=== PATIENT | female | born 1950 | race Caucasian/White ===

== ENCOUNTER 2019-04-15 23:18 | Inpatient (IN) | payer BC, OTHER ==
[~2019-04-15] VITALS: Ht 160 cm; Wt 94.3 kg
--- NOTE | ~2019-04-15 | O ---
[facility] [place] [address] OPERATIVE REPORT Name: NABIL CARNEY Room #: 433-I ADM IN M.R.#: [id number] Admission: 04/16/19 Attend Phys: Fab Pederson Discharge: Date of : 48 Report #: [id number] THIS REPORT FOR: cc: DEBORAH CORCORAN MD Physician not on staff Sim Joya MD ~ CC: DEBORAH Pederson Physician staff DATE OF SERVICE: 04/18/2019 PREOPERATIVE DIAGNOSIS: Gallstone pancreatitis. POSTOPERATIVE DIAGNOSES: Gallstone pancreatitis. Negative cholangiogram. OPERATIVE PROCEDURE DONE: Laparoscopic cholecystectomy and intraoperative cholangiogram. OPERATING SURGEON: Sim Joya MD INDICATIONS FOR THE PROCEDURE: The patient is a 68-year-old female who presented with features of gallstone pancreatitis with abnormal liver function tests. The patient was advised laparoscopic cholecystectomy and cholangiogram. The patient showed understanding and agreed to proceed. DESCRIPTION OF PROCEDURE: After explaining to the patient in detail, an informed consent was obtained, the patient was identified in the preoperative holding area. The patient was transferred to the operating room and was placed in supine position. Sequential compressive devices were placed for DVT prophylaxis. Preoperative antibiotics were given. After induction of anesthesia, the abdomen was prepped and draped in a sterile fashion. Through a right upper quadrant 1 cm incision and using Optiview technique, peritoneal cavity was entered and pneumoperitoneum was created. Thereafter, under direct vision, another 5 mm trocar was placed through a supraumbilical incision, another 5 mm trocar was placed in the epigastrium. Another 5 mm trocar was placed in the right subcostal region. On initial inspection, the gallbladder was found to be edematous. Gallbladder was retracted and the peritoneal reflections along the neck of the gallbladder was gently dissected off. Cystic duct was identified and isolated from the surrounding structures. Cystic duct was then double clipped distally and a ductotomy was made and a cholangiogram catheter was inserted. A cholangiogram was then performed. The cholangiogram showed no filling defects and there was free flow of contrast into the duodenum. The cholangiogram catheter was then removed. The cystic duct was then doubly clipped proximally and was then divided. Cystic artery also was then divided in a similar fashion. Gallbladder was gently dissected off the liver bed using [address] [address] OPERATIVE REPORT Name: ROMMELNABIL Raúl Room #: 433-I [facility] IN [facility]#: [id number] Admission: 04/16/19 Attend Phys: Fab Pederson Discharge: Date of : 48 Report #: [id number] hook electrocautery. Absolute hemostasis was achieved. Thorough saline irrigation was given. The gallbladder was retrieved using an EndoCatch through the lateral most incision. Incisions were then closed with 4-0 Monocryl. Dermabond was applied. The patient was stable at the end of the procedure. The patient was awoken from anesthesia and was transferred to the recovery room in stable condition. ESTIMATED BLOOD LOSS: Minimal. CONDITION OF THE PATIENT: Stable. FLUIDS GIVEN: Per anesthesia notes. SPECIMEN SENT: Gallbladder. COMPLICATIONS: None. ANESTHESIA: General anesthesia. By: [id number] Sim Joya MD /nt
[2019-04-15 23:42] VITALS: BP 92/56
[2019-04-15 23:56] LABS: ANION GAP 10 mmol/L (7-16); BUN 17 mg/dL (7-18); CALCIUM 9.1 mg/dL (8.5-10.1); CHLORIDE 102 mmol/L (98-107); CO2 26 mmol/L (21-32); CREATININE 0.8 mg/dL (0.6-1.0); GLUCOSE 131 mg/dL (74-106); POTASSIUM 3.9 mmol/L (3.5-5.1); SODIUM 138 mmol/L (136-145)
[2019-04-15 23:58] LABS: BASOPHILS 0.7 % (0.0-2.0); EOSINOPHILS 1.8 % (0.0-3.0); HEMOGLOBIN 13.3 gm/dL (12.0-15.0); LYMPHOCYTES 22.3 % (24.0-44.0); MCH 30.3 pg (26.0-34.0); MCHC 33.2 g/dL (28.0-37.0); MCV 91.3 fL (80.0-100.0); MONOCYTES 4.6 % (1.0-8.0); PLATELET COUNT 214 thou/uL (150-400); POLYS 70.6 % (36.0-66.0); RBC 4.38 mil/uL (4.20-5.00); RDW 13.9 % (10.5-14.5); WBC 8.5 thou/uL (4.0-11.0)
[2019-04-16 00:06] LABS: DIRECT BILIRUBIN 1.2 mg/dL (<0.1-0.2); SGOT 124 U/L (15-37); SGPT 100 U/L (30-65); TOTAL BILIRUBIN 2.2 mg/dL (<0.1-1.0); TOTAL PROTEIN 7.4 g/dL (6.4-8.2); TROPONIN-I <0.06 ng/mL (<0.06)
[2019-04-16 00:41] LABS: LIPASE 24012 U/L (73-393)
[2019-04-16] MEDS ORDERED: CELEXA 20 MG TA20 MG PO (00:41)
[2019-04-16 02:33] VITALS: BP 158/71
[2019-04-16 02:36] VITALS: BP 158/71
[2019-04-16 04:38] VITALS: BP 143/65
--- NOTE | 2019-04-16 05:00 | NUR ---
EKG DONE IN ER HAND DELIVERED BY MYSELF TO [facility] AND GIVEN TO HER NURSE.
--- NOTE | 2019-04-16 05:45 | NUR ---
PT ARRIVED ON THE UNIT FROM ER @0416 THIS AM. A&OX4 WITH MILD ABD PAIN IN THE ABD OF A 2. CURRENTLY DENIES N/V. PT ORIENTED TO THE UNIT. AD NISHA TO THE BATHROOM WITH STAEDY GAIT. CALL LIGHT IN REACH AND ASSESSEMENT DONE. PT NPO. IV INTACT AND FLIUDS INFUISING. WILL CONT TO MONITOR TILL EOS.
[2019-04-16 10:41] LABS: CHOLESTEROL 193 mg/dL (<200); HDL CHOLESTEROL 53 mg/dL (>40); LDL CHOLESTEROL 112 mg/dL (<100); TC:HDL 3.6 Ratio (Not establshd); TRIGLYCERIDE 140 mg/dL (<150); VLDL 28 mg/dL (<40)
--- NOTE | 2019-04-16 13:28 | NUR ---
PT ADMITTED RELATED TO ABD PAIN. CM REVIEWED CHART AND SPOKE WITH CARE TEAM. CM MET WITH PT AND SPOUSE AT BEDSIDE THIS DAY. PT IS A&0 X. CM ROLE INTRIDUCED. PT INDICATED SHE LIVES IN HOUSE WITH SPOUSE WITH 3 STEPS TO ETNER AND NO STEPS INSIDE. 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 PT INDICATED SHE HAD HH AND OP PT 6 MONTHS AGO WHEN SHE HAD KNEE DONE. OPT INDICATED SHE PLANS TO RETURN HOME ONCE MEDCIALLY STABLE. CARE TEAM INDICATED THAT PT IS TO HAVE MRCP AND DEPENDING ON RESULTS MAY NEED LAP DEBBIE. CM TO FOLLOW INDICATED WITH DC PLANNING.
[2019-04-16 16:18] VITALS: BP 118/50
--- NOTE | 2019-04-16 18:20 | NUR ---
PT ALERT AND ORIENTED TIMES FOUR. VSS, IVF INFUSING PER ORDER. PT DENEIS ANY N/V THIS SHIFT. PT TOLERATED CLEAR LIQUID DIET THIS EVENING. PT FAMILY AT BEDSIDE. WILL CONTIUE TO MONITOR.
[2019-04-16 19:10] VITALS: BP 102/44
[2019-04-17 03:15] VITALS: BP 96/47
--- NOTE | 2019-04-17 03:35 | NUR ---
ASSUMED PT CARE AT 1900. NO N/V EXPERIENCED TONIGHT. REPORTS NO PAIN. TOLERATING CLEAR LIQUIDS. UP AD NISHA IN ROOM, TOOK A SHOWER THIS EVENING. AND PT HAVE LOTS OF QUESTIONS ABOUT NEW DIAGNOSIS, TOLD THEM TO BRING UP CONCERNS WITH PHYSICIAN. AWAITING SURGERY ON TUESDAY. SLEEPING COMFORTABLY CURRENTLY, WILL CONTINUE TO MONITOR.
[2019-04-17 05:35] VITALS: BP 120/68
[2019-04-17 06:50] LABS: ALBUMIN 3.5 g/dL (3.4-5.0); CALCIUM 8.4 mg/dL (8.5-10.1); CREATININE 0.7 mg/dL (0.6-1.0); MAGNESIUM 2.1 mg/dL (1.8-2.4); POTASSIUM 4.2 mmol/L (3.5-5.1); TOTAL BILIRUBIN 1.2 mg/dL (<0.1-1.0); TOTAL PROTEIN 6.6 g/dL (6.4-8.2)
[2019-04-17 09:29] VITALS: BP 130/56
--- NOTE | 2019-04-17 13:31 | NUR ---
PT CARE ASSUMED AT 0700.A&Ox4. PT AWAITING SURGERY TOMORROW. PT HAS LOTS OF QUESTIONS AND GOT UPSET WHEN I TOLD HIM THAT HE HAD TO GO THROUGH [facility] TO GET HIS WIFES RECORDS. AWAITING OBGYN TO CONSULT PT. PT IS UP INDEPENDENTLY IN THE ROOM. IV IS PATENT WITH NO REDNESS OR EDEMA. FLUIDS INFUSING. PT IS ON CLEAR LIQUIDS WHICH SHE IS TOLERATING WELL. CALL LIGHT IN REACH. WILL CONTINUE TO MONITOR.
--- NOTE | 2019-04-17 15:21 | NUR ---
PT WAS ADMITTED FOR ABDOMINAL PAIN THAT WAS RELATED TO GALLBLADDER.PT IS WAITING NOW FOR SURGERY TO HAVE GALLBLADDER REMOVED ON 04/18/19.SHE IS IN NO PAIN AND IS NOW ON A CLEAR LIQUID DIET. PT HAD AN ORDER FOR ENOXPARIAN BUT REFUSED DUE TO RELGIIOUS BELIEFS SURROUNDING NATURAL HEALING.I EXPLAINED THE REASON FOR ENOXPARIAN BUT PT STILL REFUSED.ALTHOUGH THE PATIENT WAS ADMITTED FOR ABDOMINAL PAIN SHE IS ALSO CONCERNED ABOUT AN ENLARGED UTERUS, BUT OTHER THEN THAT SHE IS DOING WELL.
[2019-04-17 15:30] VITALS: BP 140/59
--- NOTE | 2019-04-17 15:33 | NUR ---
CARE TEAM INDICATED THAT PT IS TO HAVE LAP DEBBIE TOMORROW 04/18/19. CM NET WITH PT AND SPOUSE AT BEDSIDE THEY HAD EXPRESSED SOME CONCERN ABOUT WHETHER STEVEN GOYAL, AND NUPUR WERE IN NETWORK WITH HER INSURANCE. CM INDICATED THAT BY ALL WE CAN SEE THEY SHOULD BE COVERED. CM TO FOLLOW INDICATED WITH DC PLANNING. DC ANTICIPATED TUESDAY.
--- NOTE | 2019-04-17 15:53 | NUR ---
I have reviewed and concur with student documentation.
[2019-04-17 16:01] VITALS: BP 134/64
[2019-04-17 20:45] VITALS: BP 148/68
[2019-04-18 03:20] VITALS: BP 156/69
[2019-04-18 03:21] VITALS: BP 125/80
[2019-04-18 06:12] LABS: ALBUMIN 3.2 g/dL (3.4-5.0); CALCIUM 8.3 mg/dL (8.5-10.1); CREATININE 0.7 mg/dL (0.6-1.0); TOTAL BILIRUBIN 0.7 mg/dL (<0.1-1.0); TOTAL PROTEIN 6.2 g/dL (6.4-8.2)
--- NOTE | 2019-04-18 07:48 | NUR ---
ASSUMED PT CARE AT 1900. PT REPORTS NO PAIN. ANXIOUS ABOUT SURGERY TODAY. HELD DOCUSATE DUE TO LOOSE STOOLS. NPO SINCE MIDNIGHT. PT TAKEN TO SURGERY AROUND 0700. REPORT PASSED TO FER [facility]TS.
--- NOTE | 2019-04-18 11:36 | NUR ---
PT RETURNED FROM PACU. LAP SITES X4 WITH DERMA ALVARADO ARE C/D/I. PT IS JOHANNA VAIL. SPOUSE AT THE BEDSIDE. PT TOLERATING CLEARS WELL. DENIES PAIN AT THIS TIME. WILL CONT POC.
[2019-04-18 19:15] VITALS: BP 132/73
[2019-04-19 03:10] VITALS: BP 154/66
--- NOTE | 2019-04-19 03:54 | NUR ---
RECEIVED CARE OF PATIENT AT 1900. PATIENT ALERT AND ORIENTED X4. C/O MILD DULL PAIN IN ABD. 4 SMALL INCISIONS ON ABD WTIH DERMABOND. NO S/S OF INFECTION NOTED. ENCOURAGED PATIENT TO COUGH AND DEEP BREATH. GAVE PATIENT A BLANKET AND EXPLAINED TO PATIENT TO HOLD ON ABD WHEN COUGHING. AT BEDSIDE. O2 AT 2L. UP WITH ASSIST OF ONE. IV IN R HAND. SALINE LOCK IN L WRIST REMOVED. SCD'S ON.SLEPT VERY LITTLE THIS SHIFT.
[2019-04-19 07:45] VITALS: BP 148/64
[2019-04-19] MEDS ORDERED: ACETAMINOPHEN325 M1 PO (08:11)
[2019-04-19 09:21] VITALS: BP 148/64
--- NOTE | 2019-04-19 09:59 | NUR ---
PT CARE ASSUMED AT 0700. A&Ox4. PT DISCHARGED AT 0930 WITH . DISCHARGE INFORMATION AND EDUCATION GIVE. LAPSITE NON TENDER. PT PASSING GAS. NO POST OPERATIVE BM YET. CALL KAMILLE FIERRO.
--- NOTE | 2019-04-19 16:07 | PATH ---
[facility] [address] [place] [address] PATHOLOGY RPT PROCEDURE Name: NABIL CARNEY Room #: 433-I [facility] IN M.R.#: [id number] Admission: 04/16/19 Date of : 48 Discharge: 04/19/19 Report #: [id number] Path Case #: [id number] [facility] Accession Number: [id number] . 01 Material submitted: . gallbladder - GALLBLADDER . 01 Clinical history: . Gallstone pancreatitis . 02 Diagnosis: Gallbladder, cholecystectomy: - Mild chronic cholecystitis. - Cholelithiasis. - Cholesterolosis. . (IUV:mml; 04/19/2019) QL 04/19/2019 1256 Local . 02 Electronically signed: . Shweta Pizarro MD, Pathologist NPI- [id number] . 01 Gross description: . The specimen is received in formalin labeled "Nabil Carney, gallbladder" and consists of a previously opened green wrinkled gallbladder measuring 6.8 x 3.7 x 1.0 cm. The margin is inked black. Present within the lumen are multiple calculi measuring between 0.2 and 0.4 cm. The mucosa is green with extensive yellow stippling and an average wall thickness of 0.2 cm. No masses are identified. Linen Manager sections are submitted in A1. (SDY; 04/18/2019) SYU/SYU 04/19/2019 1255 Local . 02 Pathologist provided ICD-10: K80.10, K82.4 . 02 CPT . 545123 Specimen Comment: A courtesy copy of this report has been sent to [phone], [phone] Specimen Comment: [phone], Specimen Comment: Report sent to ,DR MONTGOMERY,DR CORCORAN / DR MARROQUIN Performed at: [address], [place] [id number] MD Edson Rosa MD Phone: [phone] Performed at: 02 [place] [address] PATHOLOGY RPT PROCEDURE Name: NABIL CARNEY Raúl Room #: 433-I DIS IN M.R.#: [id number] Admission: 04/16/19 Date of : 48 Discharge: 04/19/19 Report #: [id number] Path Case #: [id number] [facility] [address], [place], [place] [id number] MD Shweta Pizarro MD Phone: [phone]
--- NOTE | 2019-04-20 15:34 | EKG ---
[facility] [address] ELECTROCARDIOGRAM REPORT Name: NABIL CARNEY Room #: 433-I [facility] IN M.R.#: [id number] Admission: 04/16/19 Attend Phys: Fab Guillen Delilah Discharge: 04/19/19 Date of : 48 Report #: [id number] THIS REPORT FOR: cc: DEBOARH CORCORAN MD Physician not on staff Ron Palumbo MD [facility] ~ THIS REPORT FOR: //name// [facility] ED Test Date: 2019-04-15 Test Time: 23:45:15 Pat Name: NABIL CARNEY Department: Room: [facility] Gender: F Disassembler Product: Tan MONTOYA : 1950 Requested By: Lolis Odom Order Number: [id number] MD: Ron Palumbo Measurements Intervals [place] Rate: 63 P: 34 WA: 201 QRS: -24 QRSD: 101 T: 38 QT: 462 QTc: 474 Interpretive Statements Sinus rhythm Inferior infarct, old No previous ECG available for comparison Electronically Signed On 04-16-2019 16:57:23 HERBOLOGIST by Ron Palumbo [email or web address] <ELECTRONICALLY SIGNED> By: Ron Palumbo MD, FACC 04/16/19 1657 [id number] [id number] Ron Palumbo MD, [facility] /EPI
== END 2019-04-19 10:01 | disposition home or self-care (01) | DRG 417 ==
LOC: ER 23:18 → 4S 04-16 02:10 → EROBS 04-16 02:10 → 4S 04-16 02:45
PROVIDERS: Emergency Medicine; ADMIT Hospitalist
PROC: 0FT44ZZ Resection of Gallbladder, Percutaneous Endoscopic Approach (ICD-10-PCS; principal; 2019-04-18)
PROC: BF121ZZ Fluoroscopy of Gallbladder using Low Osmolar Contrast (ICD-10-PCS; principal; 2019-04-18)
DX: K80.50 Calculus of bile duct without cholangitis or cholecystitis without obstruction (principal); K85.10 Biliary acute pancreatitis without necrosis or infection; E80.6 Other disorders of bilirubin metabolism; F32.9 Major depressive disorder, single episode, unspecified; Z96.652 Presence of left artificial knee joint; E66.9 Obesity, unspecified; G47.33 Obstructive sleep apnea (adult) (pediatric); Z87.81 Personal history of (healed) traumatic fracture; Z88.0 Allergy status to penicillin; Z91.013 Allergy to seafood; Z87.891 Personal history of nicotine dependence; Z68.36 Body mass index [BMI] 36.0-36.9, adult
CPT/HCPCS: 10195; 50010; 50101; 50249; 50411; 50555; 51489; 52265; 52266; 54022; 54118; 55245; 55317; 56462; 56525; 56526; 57257; 62110; 62900; 70005